=== PATIENT | female | born 1960 | race Caucasian/White ===

== ENCOUNTER → 2021-01-13 | Outpatient (CLI) | payer BC ==
[2021-01-13 12:12] LABS: Partial Thromboplastin Time 25.4 sec (22.0-30.0); Prothrombin Time 10.4 sec (9.0-12.0)
[2021-01-13 16:59] LABS: HGB 11.1 g/dL (12.0-15.0); MCH 31.4 pg (27.0-32.0); MCHC 31.7 g/dL (32.0-37.0); MCV 99.2 fL (80.0-97.0); Mean Platelet Volume 10.6 fL (9.5-12.2); Platelet Count 290 X 10*3/uL (140-440); RBC 3.53 X 10*6/uL (4.10-5.20); RDW 14.3 % (11.5-14.5); WBC 7.97 X 10*3/uL (4.50-10.00)
[2021-01-13 17:36] LABS: % Iron Saturation 17.02 (12.00-45.00); African American GFR (CKD) 62.8 (60.0-200.0); Albumin 4.5 g/dL (3.80-4.90); Albumin/Globulin Ratio 1.88 (1.60-3.17); Anion Gap 9.6 mmol/L (4.00-12.00); BUN/Creat Ratio 25.45 Ratio (12.00-20.00); Calcium 9.6 mg/dL (8.7-10.3); Carbon Dioxide 24.4 mmol/L (21.6-31.8); Chol/HDL Ratio 3.09; Globulin 2.4 g/dL (1.6-3.3); LDL Cholesterol,Calculated 50.8 mg/dL (0.0-131.0); Magnesium 1.8 mg/dL (1.5-2.4); Non-African American GFR(CKD) 54.1 (60.0-200.0); Phosphorus 3.5 mg/dL (2.4-5.1); Potassium 4.7 mmol/L (3.5-5.5); Total Bilirubin 0.4 mg/dL (0.3-1.2); Total Protein 6.9 g/dL (6.2-8.2); VLDL Calculation 20.2 mg/dL (5.00-40.00)
[2021-01-13 17:46] LABS: Ferritin 187.6 ng/mL (10.0-291.0)
[2021-01-13 17:48] LABS: Folate, Serum 16.5 ng/mL
[2021-01-13 19:38] LABS: Hemoglobin A1C 6.7 % (4.0-6.0)
[2021-01-15 12:53] LABS: Zinc, Serum 75 ug/dL (60-130)
[2021-01-16 11:46] LABS: Vitamin A 69 ug/dL (38-106)
[2021-01-16 12:02] LABS: Vit B1(Thiamine) 75 ug/L (38-122)
== END | disposition home or self-care (01) ==
LOC: LABWHC1 11:11
PROVIDERS: ATTEND Surgery Plastic and Reconstructive Surgery
DX: E89.1 Postprocedural hypoinsulinemia (principal); D50.8 Other iron deficiency anemias; K90.89 Other intestinal malabsorption; E55.9 Vitamin D deficiency, unspecified; K74.1 Hepatic sclerosis; N19 Unspecified kidney failure; K50.90 Crohn's disease, unspecified, without complications
CPT/HCPCS: 36415; 80053; 80061; 82306; 82525; 82607; 82728; 82746; 83036; 83540; 83550; 83735; 83970; 84100; 84134; 84255; 84425; 84443; 84590; 84630; 85027; 85610; 85730; 93005

== ENCOUNTER 2021-05-07 06:27 | Day surgery (SDC) | payer BC ==
[2021-05-03 11:17] VITALS: BMI 53.1
[~2021-05-07 06:27] MED LIST: LACTATED RINGERS 1,000 ML IV SCH
[2021-05-07 06:54] VITALS: TEMP 97.7
[2021-05-07 07:00] LABS: Glucose,Whole Blood 234 mg/dL (75-99)
[2021-05-07] MEDS ORDERED: INSULIN ASPART (NovoLOG) 100 UNIT/ML VIAL SQ ONE (07:02)
--- NOTE | 2021-05-07 07:09 | P.GSHP ---
History of Present Illness H&P Date: 05/07/21 CHIEF COMPLAINT: GERD HISTORY OF PRESENT ILLNESS: The patient is a 60-year-old female who presents reports gastroesophageal reflux disease. Upper endoscopy was offered for further evaluation and management. PAST MEDICAL HISTORY: Please see list. PAST SURGICAL HISTORY: Please see list. MEDICATIONS: Please see list. ALLERGIES: Please see list. SOCIAL HISTORY: No illicit drug use FAMILY HISTORY: No reports of Crohn disease or ulcerative colitis. REVIEW OF ORGAN SYSTEMS: CONSTITUTIONAL: No reports of fevers or chills. GI: Denies any blood in stools or constipation. PHYSICAL EXAM: VITAL SIGNS: Stable GENERAL: Well-developed and pleasant in no acute distress. HEENT: No scleral icterus. Extraocular movements grossly intact. Moist buccal mucosa. NECK: Supple without lymphadenopathy. CHEST: Unlabored respirations. Equal bilateral excursions. CARDIOVASCULAR: Regular rate and rhythm. Distal 2+ pulses. ABDOMEN: Soft, nondistended. MUSCULOSKELETAL: No clubbing, cyanosis, or edema. ASSESSMENT: 1. Gastroesophageal reflux disease PLAN: 1. Recommend proceeding with an upper endoscopy Past Medical History Past Medical History: Diabetes Mellitus, Hypertension, Osteoarthritis (OA), Sleep Apnea/CPAP/BIPAP, Thyroid Disorder Additional Past Medical History / Comment(s): "BORDERLINE DIABETES, SARCOIDOSIS RIGHT LUNG. , OCCASIONAL SWELLING LOWER EXTREMITIES., C-PAP MACHINE. History of Any Multi-Drug Resistant Organisms: None Reported Past Surgical History: Adenoidectomy, Heart Catheterization With Stent, Tonsillectomy Additional Past Surgical History / Comment(s): cataracts, multiple D&C's. 2000 - lung biopsy. Past Anesthesia/Blood Transfusion Reactions: No Reported Reaction Date of Last Stent Placement:: 07/2017 Past Psychological History: No Psychological Hx Reported Smoking Status: Never smoker Past Alcohol Use History: Occasional Past Drug Use History: None Reported Medications and Allergies Home Medications Medication Instructions Recorded Confirmed Type Aspirin [Adult Low Dose Aspirin EC] 81 mg PO DAILY 01/03/21 05/07/21 History Atorvastatin [Lipitor] 40 mg PO DAILY 01/03/21 05/07/21 History Levothyroxine Sodium [Synthroid] 50 mcg PO DAILY 01/03/21 05/07/21 History Losartan [Cozaar] 100 mg PO DAILY 01/03/21 05/03/21 History Mirabegron [Myrbetriq] 25 mg PO DAILY 01/03/21 05/07/21 History Spironolactone [Aldactone] 25 mg PO DAILY 01/03/21 05/07/21 History cloNIDine HCL [Catapres] 0.1 mg PO DAILY 01/03/21 05/07/21 History metFORMIN HCL [Glucophage] 500 mg PO BID 01/03/21 05/07/21 History Aspirin [Adult Low Dose Aspirin EC] 81 mg PO DAILY 05/03/21 05/07/21 History Ergocalciferol [Vitamin D2 (1250 1,250 mcg PO CLAYTON 05/03/21 05/07/21 History Mcg = 60672 Iu)] Multi Vitamin Pack 1 dose PO DAILY 05/03/21 05/07/21 History Torsemide [Demadex] 20 mg PO DAILY PRN 05/03/21 05/07/21 History amLODIPine BESYLATE 5 mg PO DAILY 05/03/21 05/07/21 History Allergies Allergy/AdvReac Type Severity Reaction Status Date / Time cephalexin [From Keflex] Allergy Itching Verified 05/07/21 06:41 codeine Allergy Nausea & Verified 05/07/21 06:41 Vomiting Surgical - Exam Vital Signs Temp Pulse Resp BP Pulse Ox 97.7 F 89 18 134/61 94 L 05/07/21 06:47 05/07/21 06:47 05/07/21 06:47 05/07/21 06:47 05/07/21 06:47 Results - Labs Abnormal Lab Results - Last 24 Hours (Table) 05/07/21 Range/Units 06:57 POC Glucose (mg/dL) 234 H (75-99) mg/dL
[2021-05-07] MEDS ORDERED: PROPOFOL 10 MG/ML 20 ML VIAL IV ONE (07:10)
[2021-05-07] MEDS ORDERED: LIDOCAINE 1% INJ 10MG/ML (20 ML MDV) ONE (07:10)
[2021-05-07] MEDS ORDERED: .fentaNYL (PF) 50 MCG/ML 2 ML AMP ONE (07:10)
[2021-05-07 07:39] VITALS: BP 115/77; PULSE 77; RESP 17
--- NOTE | 2021-05-07 07:54 | P.PCN ---
Date of Procedure: 05/07/21 Description of Procedure: PREOPERATIVE DIAGNOSIS: Gastroesophageal reflux disease. Morbid obesity. POSTOPERATIVE DIAGNOSIS: Morbid obesity. Gastritis. Gastroesophageal reflux disease. OPERATION: Esophagogastroduodenoscopy with biopsies along antrum. SURGEON: Lizet Long MD ANESTHESIA: MAC. INDICATIONS: The patient is a 60-year-old female who presents with a history of reflux disease. Benefits and risks of the procedure were described. Informed consent was obtained. DESCRIPTION: The patient was brought into the endoscopy suite and laid in the left lateral decubitus position. An Olympus gastroscope was passed along the posterior oropharynx down to the distal esophagus where the squamocolumnar junction was encountered at 40 cm from the incisors. The stomach was entered and no bile reflux was found. Additional findings are listed below. Biopsies with cold forceps were obtained of the antrum. The first through third portion of the duodenum was examined and unremarkable. Retroflexion of the scope confirmed Hill grade 2 lower esophageal valve. The squamocolumnar junction demonstrated LA grade B erosive esophagitis. The stomach was desufflated. The patient tolerated the procedure well. FINDINGS: Squamocolumnar junction 40 cm from the incisors. Diaphragmatic hiatus at 40 cm. Hill grade 2 lower esophageal valve. LA grade B erosive esophagitis. No active duodenitis. Chronic gastritis RECOMMENDATIONS: Upper endoscopy as needed. Plan - Discharge Summary New Discharge Prescriptions: New Omeprazole [PriLOSEC] 40 mg PO DAILY #14 cap Continue Atorvastatin [Lipitor] 40 mg PO DAILY Ergocalciferol [Vitamin D2 (1250 Mcg = 83447 Iu)] 1,250 mcg PO C[place]TON Aspirin [Adult Low Dose Aspirin EC] 81 mg PO DAILY Mirabegron [Myrbetriq] 25 mg PO DAILY metFORMIN HCL [Glucophage] 500 mg PO BID Losartan [Cozaar] 100 mg PO DAILY cloNIDine HCL [Catapres] 0.1 mg PO DAILY Spironolactone [Aldactone] 25 mg PO DAILY Levothyroxine Sodium [Synthroid] 50 mcg PO DAILY Aspirin [Adult Low Dose Aspirin EC] 81 mg PO DAILY amLODIPine BESYLATE 5 mg PO DAILY Torsemide [Demadex] 20 mg PO DAILY PRN PRN Reason: Edema Multi Vitamin Pack 1 dose PO DAILY Discharge Medication List Aspirin [Adult Low Dose Aspirin EC] 81 mg PO DAILY 01/03/21 [History] Atorvastatin [Lipitor] 40 mg PO DAILY 01/03/21 [History] Levothyroxine Sodium [Synthroid] 50 mcg PO DAILY 01/03/21 [History] Losartan [Cozaar] 100 mg PO DAILY 01/03/21 [History] Mirabegron [Myrbetriq] 25 mg PO DAILY 01/03/21 [History] Spironolactone [Aldactone] 25 mg PO DAILY 01/03/21 [History] cloNIDine HCL [Catapres] 0.1 mg PO DAILY 01/03/21 [History] metFORMIN HCL [Glucophage] 500 mg PO BID 01/03/21 [History] Aspirin [Adult Low Dose Aspirin EC] 81 mg PO DAILY 05/03/21 [History] Ergocalciferol [Vitamin D2 (1250 Mcg = 00399 Iu)] 1,250 mcg PO C[place]TON 05/03/21 [History] Multi Vitamin Pack 1 dose PO DAILY 05/03/21 [History] Torsemide [Demadex] 20 mg PO DAILY PRN 05/03/21 [History] amLODIPine BESYLATE 5 mg PO DAILY 05/03/21 [History] Omeprazole [PriLOSEC] 40 mg PO DAILY #14 cap 05/07/21 [Rx] [facility] up [facility]ment(s[facility]Ref[facility] [place] [facility] - [facility] Patient Instructions/Handouts: *[facility] - (Anesthesia) Endoscopy Discharge Instructions, Gastritis (DC), Diet for Stomach Ulcers and Gastritis (GEN) Discharge Disposition: HOME SELF-CARE
== END 2021-05-07 08:09 | disposition home or self-care (01) ==
LOC: ORWHC2ENDO 06:27
PROVIDERS: ATTEND Surgery Plastic and Reconstructive Surgery
DX: K21.9 Gastro-esophageal reflux disease without esophagitis (principal); K29.50 Unspecified chronic gastritis without bleeding; E66.01 Morbid (severe) obesity due to excess calories; Z68.43 Body mass index [BMI] 50.0-59.9, adult; K22.10 Ulcer of esophagus without bleeding; R73.03 Prediabetes; I10 Essential (primary) hypertension; M19.90 Unspecified osteoarthritis, unspecified site; G47.33 Obstructive sleep apnea (adult) (pediatric); E07.9 Disorder of thyroid, unspecified; D86.0 Sarcoidosis of lung; Z95.820 Peripheral vascular angioplasty status with implants and grafts; Z98.890 Other specified postprocedural states; Z98.49 Cataract extraction status, unspecified eye; Z79.84 Long term (current) use of oral hypoglycemic drugs; Z79.82 Long term (current) use of aspirin; Z79.890 Hormone replacement therapy; Z79.899 Other long term (current) drug therapy; Z88.1 Allergy status to other antibiotic agents; Z88.5 Allergy status to narcotic agent
CPT/HCPCS: 88305; 43239; J2001; J3010; J2704

== ENCOUNTER → 2021-06-04 | Outpatient (CLI) | payer BC ==
[2021-06-04 12:14] LABS: HCT 38.3 % (34.0-46.0); Hypochromasia Slight; MCH 31.2 pg (25.0-35.0); MCHC 31.2 g/dL (31.0-37.0); MCV 100.1 fL (80.0-100.0); Macrocytosis Slight; Mean Platelet Volume 7.7; Platelet Count 319 k/uL (150-450); RBC 3.83 m/uL (3.80-5.40); RDW 14.7 % (11.5-15.5); WBC 10.5 k/uL (3.8-10.6)
[2021-06-04 12:30] LABS: INR 0.9 (<1.2); Partial Thromboplastin Time 25.5 sec (22.0-30.0); Prothrombin Time 10.1 sec (9.0-12.0)
[2021-06-04 14:03] VITALS: BMI 53.8
[2021-06-05 01:53] LABS: % Iron Saturation 32.98 (12.00-45.00); ALT 12 U/L (8-44); AST 17 U/L (13-35); African American GFR (CKD) 57.7 (60.0-200.0); Albumin 4.3 g/dL (3.8-4.9); Albumin/Globulin Ratio 1.72 (1.60-3.17); Alkaline Phosphatase 82 U/L (41-126); BUN/Creat Ratio 23.47 Ratio (12.00-20.00); Blood Urea Nitrogen 27.7 mg/dL (9.0-27.0); Calcium 9.7 mg/dL (8.7-10.3); Carbon Dioxide 19.7 mmol/L (20.0-27.5); Chloride 105 mmol/L (96-109); Globulin 2.5 g/dL (1.6-3.3); Glucose 267 mg/dL (70-110); Iron 97 ug/dL (50-170); LDL Cholesterol,Calculated 73.6 mg/dL (0.0-131.0); Non-African American GFR(CKD) 49.7 (60.0-200.0); Potassium 5.1 mmol/L (3.5-5.5); Prealbumin 23.9 mg/dL (18.0-42.0); Sodium 141 mmol/L (135-145); Total Bilirubin <0.20 mg/dL (0.30-1.20); Total Iron Binding Capacity 293 ug/dL (228-460); Total Protein 6.8 g/dL (6.2-8.2)
[2021-06-05 02:15] LABS: Magnesium 1.8 mg/dL (1.5-2.4); Phosphorus 2.8 mg/dL (2.4-5.1)
[2021-06-05 13:20] LABS: Vit B1(Thiamine) 67 ug/L (38-122)
[2021-06-05 14:17] LABS: Zinc, Serum 66 ug/dL (60-130)
[2021-06-06 06:19] LABS: Vitamin A 69 ug/dL (38-106)
== END ==
LOC: BARWHC3 08:44
PROVIDERS: ATTEND Surgery Plastic and Reconstructive Surgery
DX: E66.01 Morbid (severe) obesity due to excess calories (principal); Z71.3 Dietary counseling and surveillance; Z68.43 Body mass index [BMI] 50.0-59.9, adult; Z88.1 Allergy status to other antibiotic agents; Z88.5 Allergy status to narcotic agent
CPT/HCPCS: 80053; 80061; 82306; 82525; 82607; 82728; 82746; 83036; 83540; 83550; 83735; 83970; 84100; 84134; 84255; 84425; 84443; 84590; 84630; 85027; 85610; 85730; 97804

== ENCOUNTER → 2021-06-28 | Outpatient (CLI) | payer BC | END | disposition home or self-care (01) | LOC: LABWHC1 08:43 | PROVIDERS: ATTEND Surgery Plastic and Reconstructive Surgery | DX: Z01.812 Encounter for preprocedural laboratory examination (principal); Z20.822 Contact with and (suspected) exposure to COVID-19 | CPT/HCPCS: U0003; C9803 ==

== ENCOUNTER 2021-07-02 09:07 | Inpatient (IN) | payer BC ==
--- NOTE | 2021-07-02 07:31 | P.GSHP ---
History of Present Illness H&P Date: 07/01/21 DATE OF SERVICE: 01/03/2021 CHIEF COMPLAINT: Morbid obesity HISTORY OF PRESENT ILLNESS: Elizabeth Williamson is a 60-year-old female who comes with lifelong morbid obesity. She is looking into weight loss options. She needs bilateral knee replacements. Her BMI is over 50. She is looking into the sleeve gastrectomy. She has osteoarthritis of the knees including hypertensive heart disease and sleep apnea and congestive heart related due to her morbid obesity. At height of 5 feet 8.5 inches, her ideal body weight is 163 pounds. She comes in 343 pounds from 363 pounds 5 months ago. She has lost 20 pounds in 5 months. Her body mass index is 49.5 She is 180 pounds overweight. PAST MEDICAL HISTORY: 1. Morbid obesity due to excess calories 2. Body mass index of 38.0, initial 3. Sarcoidosis 4. Diabetes mellitus type 2 5. Asthma 6. Sleep apnea 7. Hypertensive heart disease 8. Hypothyroidism 9. Congestive heart failure 10. Gallstones PAST SURGICAL HISTORY: 1. Adenoidectomy 2. Heart catheterization with stent 3. Tonsillectomy 4. Bilateral cataract surgery 5. Lung biopsy 6. Multiple D&Cs HOME MEDICATIONS: Home Medications Medication Instructions Recorded Confirmed Aspirin [Adult Low Dose Aspirin EC] 81 mg PO DAILY 01/03/21 05/03/21 Atorvastatin [Lipitor] 40 mg PO DAILY 01/03/21 05/03/21 Levothyroxine Sodium [Synthroid] 50 mcg PO DAILY 01/03/21 05/03/21 Losartan [Cozaar] 100 mg PO DAILY 01/03/21 05/03/21 Mirabegron [Myrbetriq] 25 mg PO DAILY 01/03/21 05/03/21 Spironolactone [Aldactone] 25 mg PO DAILY 01/03/21 05/03/21 cloNIDine HCL [Catapres] 0.1 mg PO DAILY 01/03/21 05/03/21 metFORMIN HCL [Glucophage] 500 mg PO BID 01/03/21 05/03/21 Aspirin [Adult Low Dose Aspirin EC] 81 mg PO DAILY 05/03/21 05/03/21 Ergocalciferol [Vitamin D2 (1250 1,250 mcg PO C[place]TON 05/03/21 05/03/21 Mcg = 00439 Iu)] Multi Vitamin Pack 1 dose PO DAILY 05/03/21 Torsemide [Demadex] 20 mg PO DAILY PRN 05/03/21 05/03/21 amLODIPine BESYLATE 5 mg PO DAILY 05/03/21 05/03/21 ALLERGIES: Allergies Allergy/AdvReac Type Severity Reaction Status Date / Time cephalexin [From Keflex] Allergy Itching Verified 05/03/21 10:44 codeine Allergy Nausea & Verified 05/03/21 10:44 Vomiting SOCIAL HISTORY: No past tobacco use. FAMILY HISTORY: No family history of ulcerative colitis disease or Crohn's disease. Family history of morbid obesity. No lupus in the family. No reports of stomach or esophageal cancer. Her brothers are overweight and rest of her family. REVIEW OF ORGAN SYSTEMS: CONSTITUTIONAL: At height of 5 feet 8.5 inches, her ideal body weight is 163 pounds. She comes in 363 pounds. Her body mass index is 54.9. She is 200 pounds overweight. HEENT: Denies any active troubles with vision or hearing. Has troubles with swallowing. ENDOCRINE: Has diabetes. Has hypothyroidism. CARDIOVASCULAR: Has hypertensive heart disease. Has hyperlipidemia. RESPIRATORY: Has asthma. Has sleep apnea. GASTROINTESTINAL: Denies any bright red blood per rectum. No diarrhea. No constipation. Has gastroesophageal reflux disease. No chronic diarrhea. Has gallstones. GENITOURINARY: Has bladder urgency. No recent blood in urine MUSCULOSKELETAL: Has lower back pain and joint pain. She has osteoarthritis of the knees. She has foot swelling. NEURO: No headaches. No seizure disorders. Has neuropathy. PSYCH: Has depression. No suicidal ideation. RHEUMATOLOGIC: No lupus. No rheumatoid arthritis. HEMATOLOGIC: She reports new easy bruising. No reports of blood clots. SKIN: No rash. No skin cancer. PHYSICAL EXAM: VITAL SIGNS: Height 5 foot 8.5 inches, weight 343 pounds. BMI 49.5 GENERAL: Well-developed in no acute distress. HEENT: No scleral icterus. Extraocular movements grossly intact. Hears conversational speech. No nasal drainage. NECK: Supple without lymphadenopathy. CHEST: Nonlabored respirations with equal bilateral excursions. CARDIOVASCULAR: Regular rate and regular rhythm. Distal 2+ pulses. ABDOMEN: Obese, soft, nontender, nondistended. MUSCULOSKELETAL: No clubbing, cyanosis. Has 2+ pedal edema. NEURO: No focal or lateralizing signs. Cranial nerves 2 through 12 grossly within normal limits. PSYCH: Appropriate affect. Alert and oriented to person, place and time. SKIN: Good skin turgor. Well perfused. ASSESSMENT: 1. Morbid obesity due to excess calories 2. Body mass index of 54.9, initial 3. Sarcoidosis 4. Diabetes mellitus type 2 5. Asthma 6. Sleep apnea 7. Hypertensive heart disease 8. Hypothyroidism 9. Congestive heart failure 10. Gallstones PLAN: 1. Bariatric options between a sleeve, band and a Sloane-en-Y gastric bypass were reviewed in detail. The patient elected for a sleeve gastrectomy. Robotic assisted approach described. 2. The [place] [facility] Data was also reviewed with benefits and risks as described. 3. An 8 page second-generation bariatric consent form was reviewed in detail including potential of bleeding, infection, leaks, adequate weight loss, nutritional deficiencies which the patient demonstrated understanding of the risks. 4. A 2 week high-protein low caloric 800 kcal diet described to address hepatomegaly. 5. Preoperative labs including complete metabolic panel and CBC with type and s creen recommended. 6. DVT prophylaxis per [place] [facility]. 7. Antibiotic prophylaxis. 8. Inpatient hospitalization anticipated for more than 2 nights. 9. All questions and concerns were addressed with the patient. 10. She is at elevated risk for perioperative complications with body mass index over 50. 11. Overall, patient has expressed understanding of bariatric care including postoperative diet and commitment of lifestyle. Patient should benefit from surgical intervention for correction of her morbid obesity. Past Medical History Past Medical History: Diabetes Mellitus, Hyperlipidemia, Hypertension, Osteoarthritis (OA), Sleep Apnea/CPAP/BIPAP, Thyroid Disorder Additional Past Medical History / Comment(s): "BORDERLINE DIABETES" per pt., SARCOIDOSIS RIGHT LUNG-has not had any sx. related to, OCCASIONAL SWELLING LOWER EXTREMITIES., uses C-PAP History of Any Multi-Drug Resistant Organisms: None Reported Past Surgical History: Adenoidectomy, Heart Catheterization With Stent, Tonsillectomy Additional Past Surgical History / Comment(s): cataracts, multiple D&C's. 1999 - lung biopsy, recent EGD Past Anesthesia/Blood Transfusion Reactions: No Reported Reaction Date of Last Stent Placement:: 07/2017 Smoking Status: Never smoker Medications and Allergies Home Medications Medication Instructions Recorded Confirmed Type Aspirin [Adult Low Dose Aspirin EC] 81 mg PO DAILY 01/03/21 06/27/21 History Atorvastatin [Lipitor] 40 mg PO DAILY 01/03/21 06/27/21 History Levothyroxine Sodium [Synthroid] 50 mcg PO DAILY 01/03/21 06/27/21 History Losartan [Cozaar] 100 mg PO DAILY 01/03/21 06/27/21 History Mirabegron [Myrbetriq] 25 mg PO DAILY 01/03/21 06/27/21 History Spironolactone [Aldactone] 25 mg PO DAILY 01/03/21 06/27/21 History cloNIDine HCL [Catapres] 0.1 mg PO DAILY 01/03/21 06/27/21 History metFORMIN HCL [Glucophage] 500 mg PO BID 01/03/21 06/27/21 History Ergocalciferol [Vitamin D2 (1250 1,250 mcg PO [place] 05/03/21 06/27/21 History Mcg = 22575 Iu)] Torsemide [Demadex] 20 mg PO DAILY PRN 05/03/21 06/27/21 History amLODIPine BESYLATE 5 mg PO DAILY 05/03/21 06/27/21 History Allergies Allergy/AdvReac Type Severity Reaction Status Date / Time cephalexin [From Keflex] Allergy Itching Verified 06/27/21 09:40 codeine Allergy Nausea & Verified 06/27/21 09:40 Vomiting
[~2021-07-02 09:07] MED LIST changes: +ACETAMINOPHEN TAB 500 MG TAB PO PRN; +CHLORHEXIDINE GLUCONATE 15 ML CUP MUCOUS MEM PRN; +DEXAMETHASONE SOD PHOSPHATE 4 MG/ML 1 ML VIAL IV ONE; +ENOXAPARIN 40 MG/0.4 ML SYRINGE SQ PRN; +GABAPENTIN 300 MG CAP PO PRN; +HYDROmorphone 0.5 MG/0.5 ML SYRINGE IVP PRN; -LACTATED RINGERS 1,000 ML IV SCH; +ONDANSETRON 4 MG/2 ML VIAL IVP ONE; +PANTOPRAZOLE 40 MG/10 ML VIAL IVP PRN; +SCOPOLAMINE 1.5MG/72HR PATCH TRANSDERM PRN; +ceFAZolin 3 GM in SODIUM CHLORIDE 0.9% 100 ML IVPB PRN
[2021-07-02 10:01] LABS: Glucose,Whole Blood 147 mg/dL (75-99)
[2021-07-02] MEDS ORDERED: ONDANSETRON 4 MG/2 ML VIAL ONE (10:02)
[2021-07-02] MEDS ORDERED: DEXAMETHASONE SOD PHOSPHATE 4 MG/ML 1 ML VIAL IV ONE (10:14)
[2021-07-02] MEDS: LACTATED RINGERS 1,000 ML IV SCH (10:15)
[2021-07-02] MEDS ORDERED: ePHEDrine 50 MG/ML 1 ML AMP ONE (10:56)
[2021-07-02] MEDS ORDERED: NEOSTIGMINE 1 MG/ML 10 ML VIAL ONE (10:56)
[2021-07-02] MEDS ORDERED: PROPOFOL 10 MG/ML 20 ML VIAL IV ONE (10:56)
[2021-07-02] MEDS ORDERED: MIDAZOLAM 2 MG/2 ML VIAL ONE (10:56)
[2021-07-02] MEDS ORDERED: SUCCINYLCHOLINE CHLORIDE VIAL 200 MG/10 ML VIAL IV ONE (10:56)
[2021-07-02] MEDS ORDERED: LIDOCAINE 1% INJ 10MG/ML (20 ML MDV) ONE (10:56)
[2021-07-02] MEDS ORDERED: PHENYLEPHRINE-0.9% NACL SYG 1,000 MCG/10 ML SYRINGE ONE (10:56)
[2021-07-02] MEDS ORDERED: WATER FOR INJECTION, STERILE 10 ML VIAL IV ONE (10:56)
[2021-07-02] MEDS ORDERED: ROCURONIUM 10 MG/ML (5 ML VIAL) IV ONE (10:56)
[2021-07-02] MEDS ORDERED: GLYCOPYRROLATE 0.2 MG/ML 2 ML VIAL ONE (10:56)
[2021-07-02] MEDS ORDERED: fentaNYL (PF) 50 MCG/ML 2 ML AMP ONE (10:56)
[2021-07-02] MEDS ORDERED: HYDROmorphone (PF) 1 MG/ML ONE (10:56)
[2021-07-02] MEDS ORDERED: BUPIVACAIN-EPI 0.25%-1:200,000 30 ML VIAL SQ ONE ×2 (10:58→11:31)
[2021-07-02] MEDS ORDERED: LACTATED RINGERS 1,000 ML IV ONE ×2 (11:45→12:55)
[2021-07-02] MEDS ORDERED: HYDROmorphone 1 MG/ML 1 ML SYRINGE IVP PRN (13:24)
[2021-07-02] MEDS ORDERED: diphenhydrAMINE 50 MG/ML 1 ML VIAL IVP PRN (13:24)
[2021-07-02] MEDS ORDERED: ONDANSETRON 4 MG/2 ML VIAL IVP PRN (13:24)
[2021-07-02] MEDS ORDERED: NALOXONE 0.4 MG/ML 1 ML VIAL IV PRN (13:24)
[2021-07-02] MEDS ORDERED: TORSEMIDE 20 MG TAB PO PRN (13:27)
--- NOTE | 2021-07-02 13:35 | P.OP ---
Date of Procedure: 07/02/21 Description of Procedure: SURGEON: JOSE DEL ROSARIO MD PREOPERATIVE DIAGNOSES: 1. Morbid obesity due to excess calories 2. Body mass index of 54.9, initial 3. Sarcoidosis 4. Diabetes mellitus type 2 5. Asthma 6. Sleep apnea 7. Hypertensive heart disease 8. Hypothyroidism 9. Congestive heart failure POSTOPERATIVE DIAGNOSES: 1. Morbid obesity due to excess calories 2. Body mass index of 54.9, initial 3. Sarcoidosis 4. Diabetes mellitus type 2 5. Asthma 6. Sleep apnea 7. Hypertensive heart disease 8. Hypothyroidism 9. Congestive heart failure 10. Hepatomegaly OPERATION: 1. Robotic assisted daVinci Xi laparoscopic sleeve gastrectomy, multiport 2. Intraoperative esophagogastroduodenoscopy. ANESTHESIA: Gen. local anesthetic ESTIMATED BLOOD LOSS: 5 mL SPECIMENS REMOVED: Sleeve gastrectomy COMPLICATIONS: None. FINDINGS: 1. Negative intraoperative esophagogastrojejunoscopy leak test. 2. No large hiatus hernia. 3. Total of 9 staplers used including 5 - 60 mm green and 4 60 mm blue robot loads used to create the gastric sleeve. 4. Sleeve gastrectomy, 39 x 6 cm INDICATIONS: Elizabeth Williamson is a 60-year-old female who comes with lifelong morbid obesity. She is looking into weight loss options. She needs bilateral knee replacements. Her BMI is over 50. She is looking into the sleeve gastrectomy. She has osteoarthritis of the knees including hypertensive heart disease and sleep apnea and congestive heart related due to her morbid obesity. At height of 5 feet 8.5 inches, her ideal body weight is 163 pounds. She comes in 342 pounds from 363 pounds 5 months ago. She has lost 20 pounds in 5 months. Her body mass index is 49.5 She is 180 pounds overweight. All surgical options for morbid obesity had been described using the [place] [facility] collaborative comorbidity resolution including complication risk score. A second-generation bariatric consent form was described in detail including the possibility of protein malnutrition, leaks, gastric stricture, venous thrombosis, gastroesophageal reflux disease, need for further surgery for which she demonstrated understanding. Benefits and risks of the procedure were described at length. Informed consent was obtained. DESCRIPTION: The patient was brought into the operating room theater. Preoperatively she had received Lovenox subcutaneously for DVT prophylaxis. Additionally she had Peridex oral solution as an oral decontaminant. After general induction, the abdomen was prepped and draped in standard sterile fashion. An Ioban draping was placed along the abdomen. A robotic da Mackenzie Xi system was prepped and primed. At 15 cm from the xiphoid, proposed port sites were marked with indelible marker along the anterior axillary line bilaterally, mid axillary line bilaterally with each ports were marked 10 to 15 cm from each other. The robotic stapler port was marked for the right midclavicular line. A 5 mm 0 degrees laparoscopic trocar entry was performed along the left upper quadrant. The abdomen was insufflated to 15 mmHg pressure was tolerated well. Diagnostic laparoscopy demonstrated no injury to bowel, viscera, or mesentery. No evidence of large hiatus hernia was identified. The liver had hepatomegaly. A 8 mm port was placed along the left upper abdominal wall after exchanging the 5 mm port. A separate 8 mm port was placed along the left lateral abdominal wall. Please note that the ports were placed at least 20 cm away from the target anatomy. Care was taken to check each robotic arms were safely away from collision with the bed or the patient. At the epigastrium, a medium sized Juan liver retractor was placed under direct visualization with the Iron Equipment Service Technician placed under the right shoulder of the patient. Next, 12-mm robot stapler port was placed along the right upper quadrant. The camera 8-mm port was maintained along the epigastrium. The patient was repositioned in reverse Trendelenburg position at 21-degrees after lowering the bed. The robot was docked along the left side of the patient. Using a grasper for arm 4, a vessel sealer for arm 3, including grasper for arm 1, the robotic system was docked and primed as described. Instruments were interchanged by the assistant quality manager for stapler loads. The camera was placed at 30- degrees down. I had sat at the console. The pylorus was identified and 6 cm proximally along the greater curvature of the stomach, the short gastrics were mobilized upwards to the angle of His using a vessel sealer. Hemostasis was excellent during this portion of the procedure. Next, the upper pole of the stomach was adherent to the left edgardo, which was gently dissected free using atraumatic grasper. I went to the head of the bed and placed 40-Khmer blunt bougie into the stomach. Robotic stapler green load 60 mm 5 followed by blue 60 mm x 4 loads were used to create the sleeve. Initial firing was across the antrum of the stomach towards the angle of His. The staple line was linear without corkscrewing. The space from the angularis incisura of the sleeve was approximately 4 cm. I then went to the head of the bed to perform the intraoperative esophagogastroduodenoscopy leak test. The upper pole of the stomach was bathed using normal saline solution. The scope was withdrawn with careful inspection along the staple line for which no leaks were found along the entire length. Additionally,the sleeve was completely hemostatic without any encroachment along the angularis incisura. Its topology was a soft "J". No stricture was encountered upon placement of the scope. The GI tract was desufflated. The patient tolerated this portion of the procedure well. The scope was completely withdrawn. The robot was undocked. I then rescrubbed into case, whereby the irrigation fluid was aspirated from the abdominal cavity. Tisseel fibrin sealant was placed along the entire staple length. Once dried the Juan liver retractor was removed. Attention was now brought to removal of the specimen. The distal end of the sleeve gastrectomy specimen was brought out through the 12 mm port at the left upper quadrant. The specimen was gently removed en total. No contamination had occurred during this process. All instruments and pneumoperitoneum including irrigation fluid was removed from the abdominal cavity. The 12 mm port site was closed using 0-Vicryl and Timbo Sky and irrigated with diluted hydrogen peroxide. The final incisions were closed using subcuticular interrupted suture of 4-0 Monocryl. Exofin was applied to the skin once the skin had been cleansed. OptiFoam dressing was placed along the stomach extraction site. The sleeve specimen was measured and checked also for leaks which none were found. At the end of the procedure, needle, sponge, and instrument count was verified correct by the surgical processor. The patient was taken to the postanesthesia care unit in stable condition. She had tolerated the procedure well. Intraoperative films and findings were reviewed with the patient's family.
[2021-07-02] MEDS: 0.9% NACL WITH KCL 20 MEQ/L 1,000 ML IV SCH ×2 (14:39→21:18)
[2021-07-02] MEDS: ALBUTEROL NEBULIZED 2.5 MG/3 ML INHALATION SCH ×2 (16:36→21:08)
[2021-07-02] MEDS: SIMETHICONE 40 MG/0.6 ML DROPS 2,000 MG/30 ML BOTTLE PO SCH ×2 (16:50→23:50)
[2021-07-02] MEDS: DEXAMETHASONE SOD PHOSPHATE 4 MG/ML 1 ML VIAL IVP SCH ×2 (16:51→23:49)
[2021-07-02] MEDS: HYOSCYAMINE ORAL DROPS 1.875 MG/15 ML BOTTLE PO SCH ×2 (16:51→23:50)
[2021-07-02] MEDS: ACETAMINOPHEN IV (For NPO) 1,000 MG in EMPTY BAG 1 BAG IVPB SCH ×2 (16:52→23:46)
[2021-07-02] MEDS: KETOROLAC 30 MG/ML 1 ML VIAL IVP SCH ×2 (16:52→23:49)
[2021-07-02] MEDS: METOCLOPRAMIDE 5 MG/ML 2 ML VIAL IVP SCH ×2 (16:53→23:48)
[2021-07-02 16:55] LABS: Glucose,Whole Blood 162 mg/dL (75-99)
[2021-07-02] MEDS: INSULIN ASPART (NovoLOG) 100 UNIT/ML VIAL SQ SCH ×2 (16:59→23:58)
[2021-07-02] MEDS: ceFAZolin 3 GM in SODIUM CHLORIDE 0.9% 100 ML IVPB SCH (17:57)
[2021-07-02] MEDS: PANTOPRAZOLE 40 MG/10 ML VIAL IV SCH (20:06)
[2021-07-02 23:58] LABS: Glucose,Whole Blood 147 mg/dL (75-99)
[2021-07-03] MEDS: LACTATED RINGERS 1,000 ML IV SCH (01:59)
[2021-07-03 02:28] VITALS: RESP 16
[2021-07-03] MEDS: ceFAZolin 3 GM in SODIUM CHLORIDE 0.9% 100 ML IVPB SCH (02:32)
[2021-07-03] MEDS: 0.9% NACL WITH KCL 20 MEQ/L 1,000 ML IV SCH (03:38)
[2021-07-03] MEDS: ACETAMINOPHEN IV (For NPO) 1,000 MG in EMPTY BAG 1 BAG IVPB SCH ×2 (05:34→12:28)
[2021-07-03] MEDS: DEXAMETHASONE SOD PHOSPHATE 4 MG/ML 1 ML VIAL IVP SCH ×2 (05:36→12:24)
[2021-07-03] MEDS: METOCLOPRAMIDE 5 MG/ML 2 ML VIAL IVP SCH ×2 (05:36→12:23)
[2021-07-03] MEDS: KETOROLAC 30 MG/ML 1 ML VIAL IVP SCH ×2 (05:37→12:23)
[2021-07-03 05:51] LABS: Glucose,Whole Blood 147 mg/dL (75-99)
[2021-07-03] MEDS: HYOSCYAMINE ORAL DROPS 1.875 MG/15 ML BOTTLE PO SCH ×2 (05:54→12:28)
[2021-07-03] MEDS: INSULIN ASPART (NovoLOG) 100 UNIT/ML VIAL SQ SCH ×2 (05:54→12:25)
[2021-07-03] MEDS: SIMETHICONE 40 MG/0.6 ML DROPS 2,000 MG/30 ML BOTTLE PO SCH ×2 (05:54→12:24)
[2021-07-03] MEDS ORDERED: LEVOTHYROXINE 50 MCG TAB PO SCH (06:30)
[2021-07-03] MEDS ORDERED: 0.9% NACL WITH KCL 20 MEQ/L 1,000 ML IV SCH (08:00)
[2021-07-03] MEDS: PANTOPRAZOLE 40 MG/10 ML VIAL IV SCH (08:16)
[2021-07-03] MEDS: ALBUTEROL NEBULIZED 2.5 MG/3 ML INHALATION SCH ×3 (08:29→16:42)
[2021-07-03 08:50] VITALS: BP 124/77
[2021-07-03] MEDS ORDERED: LOSARTAN 50 MG TAB PO SCH (09:00)
[2021-07-03] MEDS ORDERED: amLODIPine 5 MG TAB PO SCH (09:00)
[2021-07-03] MEDS ORDERED: ENOXAPARIN 40 MG/0.4 ML SYRINGE SQ SCH (09:00)
[2021-07-03] MEDS ORDERED: Mirabegron [Myrbetriq] 25 MG Tab.Er.24h PO SCH (09:00)
[2021-07-03] MEDS ORDERED: cloNIDine HCL 0.1 MG TAB PO SCH (09:00)
[2021-07-03] MEDS ORDERED: SPIRONOLACTONE 25 MG TAB PO SCH (09:00)
[2021-07-03] MEDS ORDERED: SODIUM CHLORIDE 0.9% 2,000 ML IV ONE (10:30)
--- NOTE | 2021-07-03 11:13 | FL ---
EXAMINATION TYPE: FL UGI DATE OF EXAM: 07/03/2021 LIMITED UGI: CLINICAL HISTORY: Morbid obesity, gastric sleeve surgery yesterday. TECHNIQUE: Limited esophagram is performed utilizing 2 oz of Isovue-370. A total of 39 seconds of fl uoroscopic time was utilized during procedure and 45 images obtained. COMPARISON: None. FINDINGS: The patient swallowed contrast without difficulty or delay. Esophageal peristalsis and mo tility are within normal limits. There is good flow of contrast along the diaphragmatic hiatus into proximal stomach and subsequent flow through proximal anastomosis into gastric sleeve. There is minim al delay in flow from distal sleeve and anastomosis into pylorus and duodenal sweep. Patient remains asymptomatic. There is no evidence of contrast extravasation to suggest leak. IMPRESSION: No evidence of leak or significant obstruction status post gastric sleeve surgery yesterd ay.
[2021-07-03 11:20] VITALS: TEMP 97
[2021-07-03 11:35] LABS: Glucose,Whole Blood 183 mg/dL (75-99)
[2021-07-03 11:38] LABS: Basophils # (A) 0.01 X 10*3/uL (0.00-0.10); Basophils % (A) 0.1 %; Eosinophils # (A) 0 X 10*3/uL (0.04-0.35); Eosinophils % (A) 0 %; HCT 35.7 % (37.2-46.3); HGB 11.2 g/dL (12.0-15.0); Lymphocytes % (A) 6.3 %; MCH 31.5 pg (27.0-32.0); MCHC 31.4 g/dL (32.0-37.0); MCV 100.3 fL (80.0-97.0); Mean Platelet Volume 10.7 fL (9.5-12.2); Monocytes # (A) 0.39 X 10*3/uL (0.20-1.00); Monocytes % (A) 3.5 %; Neutrophils % (A) 89.7 %; Platelet Count 310 X 10*3/uL (140-440); RBC 3.56 X 10*6/uL (4.10-5.20); RDW 14.7 % (11.5-14.5); WBC 11.15 X 10*3/uL (4.50-10.00)
[2021-07-03 11:59] LABS: African American GFR (CKD) 62.8 (60.0-200.0); Anion Gap 10.9 mmol/L (10.00-18.00); Blood Urea Nitrogen 22.6 mg/dL (9.0-27.0); Carbon Dioxide 19.1 mmol/L (20.0-27.5); Non-African American GFR(CKD) 54.1 (60.0-200.0); Phosphorus 3.7 mg/dL (2.4-5.1)
[2021-07-03 12:03] VITALS: PULSE 78
[2021-07-03 12:53] VITALS: BMI 49.2
[2021-07-03] MEDS ORDERED: SODIUM CHLORIDE 0.9% 1,000 ML IV SCH (14:00)
--- NOTE | 2021-07-03 15:59 | P.DS ---
Providers Date of admission: 07/02/21 09:07 Expected date of discharge: 07/03/21 Attending physician: Lizet Long Primary care physician: Stated None Hospital Course: Discharge diagnosis 1. Morbid obesity due to excess calories 2. Body mass index of 54.9, initial 3. Sarcoidosis 4. Diabetes mellitus type 2 5. Asthma 6. Sleep apnea 7. Hypertensive heart disease 8. Hypothyroidism 9. Congestive heart failure 10. Hepatomegaly Hospital course Elizabeth Williamson is a 60-year-old female who comes with lifelong morbid obesity. She is looking into weight loss options. She needs bilateral knee replacements. Her BMI is over 50. She has osteoarthritis of the knees including hypertensive heart disease and sleep apnea and congestive heart related due to her morbid obesity. Patient is status post Robotic assisted daVinci Xi laparoscopic sleeve gastrectomy. Patient tolerated surgery well. Her upper GI shows no evidence of leak or obstruction. She is tolerating diet. She is up and ambulating. Her pain is controlled. She is afebrile. She is stable for discharge. Physician Latrine Cleaner note has been reviewed by physician. Signing provider agrees with the documented findings, assessment, and plan of care. Patient Condition at Discharge: Stable Plan - Discharge Summary Discharge Rx Participant: Yes New Discharge Prescriptions: New bisacodyL [Dulcolax] 5 mg PO DAILY PRN #10 tab PRN Reason: Constipation Simethicone 40 mg/0.6 ml Drops [Mylicon Drops] 40 mg PO PCHS PRN #30 ml PRN Reason: Gas Omeprazole [PriLOSEC] 40 mg PO DAILY #30 cap Ondansetron Odt [Zofran Odt] 4 mg PO Q8HR PRN #9 tab PRN Reason: Nausea Acetaminophen [Tylenol Extra Strength] 1,000 mg PO Q6H PRN #12 tablet PRN Reason: Pain Continue Mirabegron [Myrbetriq] 25 mg PO DAILY Losartan [Cozaar] 100 mg PO DAILY cloNIDine HCL [Catapres] 0.1 mg PO DAILY Levothyroxine Sodium [Synthroid] 50 mcg PO DAILY amLODIPine BESYLATE 5 mg PO DAILY Discontinued Atorvastatin [Lipitor] 40 mg PO DAILY Ergocalciferol [Vitamin D2 (1250 Mcg = 35246 Iu)] 1,250 mcg PO [place] metFORMIN HCL [Glucophage] 500 mg PO BID Spironolactone [Aldactone] 25 mg PO DAILY Aspirin [Adult Low Dose Aspirin EC] 81 mg PO DAILY Torsemide [Demadex] 20 mg PO DAILY PRN PRN Reason: Edema Discharge Medication List Levothyroxine Sodium [Synthroid] 50 mcg PO DAILY 01/03/21 [History] Losartan [Cozaar] 100 mg PO DAILY 01/03/21 [History] Mirabegron [Myrbetriq] 25 mg PO DAILY 01/03/21 [History] cloNIDine HCL [Catapres] 0.1 mg PO DAILY 01/03/21 [History] amLODIPine BESYLATE 5 mg PO DAILY 05/03/21 [History] Acetaminophen [Tylenol Extra Strength] 1,000 mg PO Q6H PRN #12 tablet 07/03/21 [Rx] Omeprazole [PriLOSEC] 40 mg PO DAILY #30 cap 07/03/21 [Rx] Ondansetron Odt [Zofran Odt] 4 mg PO Q8HR PRN #9 tab 07/03/21 [Rx] Simethicone 40 mg/0.6 ml Drops [Mylicon Drops] 40 mg PO PCHS PRN #30 ml 07/03/21 [Rx] bisacodyL [Dulcolax] 5 mg PO DAILY PRN #10 tab 07/03/21 [Rx] Follow [facility](s[facility]06[place]21 9:00 am Activity/Diet/Wound Care/Special Instructions: Wear abdominal binder at all times for comfort. No lifting over 4 pounds in 4 weeks until Jul 30. May shower. No bath tub soaks for two weeks until Jul 16 Use ice along incisions for the today to prevent swelling. No straws or carbonated beverages Open cuts and/or crush all pills to the size smaller than a TicTac Hold all vitamins until seen by surgeon Discharge Disposition: HOME SELF-CARE
[2021-07-04] MEDS ORDERED: bisacodyL 5 MG TABLET.DR PO PRN (08:00)
--- NOTE | 2021-07-04 11:56 | CDI ---
Documentation Clarification Form Date: 07/04/2021 11:49:58 AM From: Reyes Salgado Admit Date: 07/02/2021 09:07:00 AM Patient Name: Elizabeth Williamson Visit Number: [id number] Discharge Date: 07/03/2021 05:33:00 PM ATTENTION: The Clinical Documentation Specialists (CDI) and [facility] Coding Staff appreciate your assistance in clarifying documentation. Please respond to the clarification below the line at the bottom and electronically sign. The CDI & [facility] Coding staff will review the response and follow-up if needed. Please note: Queries are made part of the Legal Health Record. If you have any questions, please contact the author of this message via ITS. Dr. Lizet Long Your patient has the documented diagnosis of unspecified CHF in the H+P and discharge summary. Additional information regarding the [type, acuity] of CHF is requested. History/Risk Factors: morbid obesity, hypertensive heart disease Clinical Indicators: occasional swelling of lower extremties BNP: not done Echocardiogram Results: not available Chest X Ray: not done Treatment: demadex 20 mg qd In your professional opinion, can you please clarify the [acuity and type] of CHF if known? [ ] Acute Systolic Heart Failure (reduced EF) [ ] Chronic Systolic Heart Failure (reduced EF) [ ] Acute on Chronic Systolic Heart Failure (reduced EF) [ ] Acute Diastolic Heart Failure (preserved EF) [ x] Chronic Diastolic Heart Failure (preserved EF) [ ] Acute on Chronic Diastolic Heart Failure (preserved EF) [ ] Acute Systolic & Diastolic Heart Failure [ ] Chronic Systolic & Diastolic Heart Failure [ ] Acute on Chronic Heart Failure Systolic & Diastolic Heart Failure [ ] Other, please specify [ ] Unable to determine KM 07/04/21 15:50 MTDD
== END 2021-07-03 17:33 | disposition home or self-care (01) | DRG 620 ==
LOC: 2ORMAIN 09:07 → 4SSUR 13:29
PROVIDERS: ADMIT Surgery Plastic and Reconstructive Surgery; ATTEND Surgery Plastic and Reconstructive Surgery
PROC: 8E0W4CZ Robotic Assisted Procedure of Trunk Region, Percutaneous Endoscopic Approach (ICD-10-PCS; 2021-07-02)
PROC: 0DJ08ZZ Inspection of Upper Intestinal Tract, Via Natural or Artificial Opening Endoscopic (ICD-10-PCS; 2021-07-02)
PROC: 0DB64Z3 Excision of Stomach, Percutaneous Endoscopic Approach, Vertical (ICD-10-PCS; principal; 2021-07-02 10:25)
DX: E66.01 Morbid (severe) obesity due to excess calories (principal); I50.32 Chronic diastolic (congestive) heart failure; Z68.43 Body mass index [BMI] 50.0-59.9, adult; D86.9 Sarcoidosis, unspecified; E03.9 Hypothyroidism, unspecified; E11.9 Type 2 diabetes mellitus without complications; E78.5 Hyperlipidemia, unspecified; G47.30 Sleep apnea, unspecified; I11.0 Hypertensive heart disease with heart failure; J45.909 Unspecified asthma, uncomplicated; K80.20 Calculus of gallbladder without cholecystitis without obstruction; M17.0 Bilateral primary osteoarthritis of knee; Z79.82 Long term (current) use of aspirin; Z79.84 Long term (current) use of oral hypoglycemic drugs; Z79.890 Hormone replacement therapy; Z79.899 Other long term (current) drug therapy; Z96.653 Presence of artificial knee joint, bilateral
CPT/HCPCS: 36415; 74240; 80051; 82310; 82565; 83036; 83735; 84100; 84132; 84520; 85025; 86850; 86900; 86901; 88307; 94640; 94760; 94762

== ENCOUNTER → 2021-07-06 | Outpatient (CLI) | payer BC ==
--- NOTE | 2021-07-06 09:36 | P.BASOAP ---
Subjective Progress Note Date: 07/06/21 DATE OF SERVICE: 07/06/2021 CHIEF COMPLAINT: Status post sleeve gastrectomy HISTORY OF PRESENT ILLNESS: Elizabeth Williamson is a 60-year-old female status post sleeve gastrectomy, 07/02/2021. She is POD 4. Her pain is well controlled. No nausea or vomiting. She is tolerating liquids. She wants to work remotely. Incisions are fine. At height of 5 feet 8.5 inches, her ideal body weight is 163 pounds. Her initial weight was 363 pounds. She comes in 347 pounds from 364 pounds, 2 months ago. She has lost 17 pound in 2 months. Her body mass index is 52.1. She is 184 pounds overweight. PHYSICAL EXAM: VITAL SIGNS: Height 5 foot 8.5 inches, weight 347 pounds. BMI 52.1 Vital Signs Temp 97.5 F L 07/06/21 10:28 Pulse 76 07/06/21 10:28 Resp BP 155/82 07/06/21 10:28 Pulse Ox GENERAL: Well-developed in no acute distress. HEENT: No scleral icterus. Extraocular movements grossly intact. Hears conversational speech. No nasal drainage. NECK: Supple without lymphadenopathy. CHEST: Nonlabored respirations with equal bilateral excursions. CARDIOVASCULAR: Regular rate and regular rhythm. Distal 2+ pulses. ABDOMEN: Obese, soft. Incisions intact without infection. MUSCULOSKELETAL: No clubbing, cyanosis. NEURO: No focal or lateralizing signs. Cranial nerves 2 through 12 grossly within normal limits. PSYCH: Appropriate affect. Alert and oriented to person, place and time. SKIN: Good skin turgor. Well perfused. MISCELLANEOUS: Images reviewed. ASSESSMENT: 1. Morbid obesity due to excess calories 2. Body mass index of 54.7 to 52.1 3. Sarcoidosis 4. Diabetes mellitus type 2 5. Asthma 6. Sleep apnea 7. Hypertensive heart disease 8. Hypothyroidism 9. Congestive heart failure 10. Status post sleeve gastrectomy PLAN: 1. Diet reviewed. 2. Medical reconciliation reviewed. Assessment/Plan Plan: Date: Initial Weight: 165.193 kg Initial BMI: Current Weight: Current BMI: Type of Surgery: Total Volume in Band: Previous Volume: Volume Removed: Volume Added: Band Size:
--- NOTE | 2021-07-06 09:40 | P.PN ---
Progress Note - Text Progress Note Date: 07/06/21 To whom it may concern: Elizabeth Williamson is under my surgical care. She may return to work remotely Friday July 16, 2021. Regards, Lizet Long MD, FACS
[2021-07-06 10:30] VITALS: BP 155/82; PULSE 76; TEMP 97.5; BMI 52.1
== END ==
LOC: BARWHC3 08:38
PROVIDERS: ATTEND Surgery Plastic and Reconstructive Surgery
DX: E66.01 Morbid (severe) obesity due to excess calories (principal); D86.9 Sarcoidosis, unspecified; E11.9 Type 2 diabetes mellitus without complications; J45.909 Unspecified asthma, uncomplicated; G47.30 Sleep apnea, unspecified; E03.9 Hypothyroidism, unspecified; I50.9 Heart failure, unspecified; I11.0 Hypertensive heart disease with heart failure; Z98.84 Bariatric surgery status; Z88.1 Allergy status to other antibiotic agents; Z88.5 Allergy status to narcotic agent; Z68.43 Body mass index [BMI] 50.0-59.9, adult
CPT/HCPCS: 99213

== ENCOUNTER → 2021-07-11 | Outpatient (CLI) | payer BC ==
[2021-07-11 16:04] VITALS: BP 170/80; PULSE 105; RESP 16; TEMP 98.2; BMI 50.5
--- NOTE | 2021-07-11 16:22 | P.BASOAP ---
Subjective Progress Note Date: 07/11/21 DATE OF SERVICE: 07/11/2021 CHIEF COMPLAINT: Status post sleeve gastrectomy HISTORY OF PRESENT ILLNESS: Elizabeth Williamson is a 60-year-old female status post sleeve gastrectomy, 07/02/2021. She is 1 week out. She is doing well. She denies abdominal pain, nausea or vomiting. At height of 5 feet 8.5 inches, her ideal body weight is 163 pounds. Her initial weight was 363 pounds, BMI 54.5. She comes in 336 pounds from 347 pounds, 1 week ago. She has lost 11 pound in 1 week ago. Her body mass index is 50.5. She is 173 pounds overweight. Lifetime weight loss of 27 pounds. Percent excess weight loss of 13% lifetime. PHYSICAL EXAM: VITAL SIGNS: Height 5 foot 8.5 inches, weight 336 pounds. BMI 50.5 Vital Signs Temp 98.2 F 07/11/21 16:02 Pulse 105 H 07/11/21 16:02 Resp 16 07/11/21 16:02 BP 170/80 07/11/21 16:02 Pulse Ox GENERAL: Well-developed in no acute distress. HEENT: No scleral icterus. Extraocular movements grossly intact. Hears conversational speech. No nasal drainage. NECK: Supple without lymphadenopathy. CHEST: Nonlabored respirations with equal bilateral excursions. CARDIOVASCULAR: Distal 2+ pulses. ABDOMEN: Obese, soft. Incisions intact without infection. MUSCULOSKELETAL: No clubbing, cyanosis. NEURO: No focal or lateralizing signs. Cranial nerves 2 through 12 grossly within normal limits. PSYCH: Appropriate affect. Alert and oriented to person, place and time. SKIN: Good skin turgor. Well perfused. Final Pathologic Diagnosis PORTION OF STOMACH, SLEEVE GASTRECTOMY: Mild focal chronic gastritis with congestion. Morbid obesity clinically. No Helicobacter organisms on H+E staining. ASSESSMENT: 1. Morbid obesity due to excess calories 2. Body mass index of 54.7 to 50.5 3. Sarcoidosis 4. Diabetes mellitus type 2 5. Asthma 6. Sleep apnea 7. Hypertensive heart disease 8. Hypothyroidism 9. Congestive heart failure 10. Status post sleeve gastrectomy PLAN: 1. Bariatric labs for 1 month post-op 2. Follow up 1 month Objective - Vital Signs Vital signs: Vital Signs Temp 98.2 F 07/11/21 16:02 Pulse 105 H 07/11/21 16:02 Resp 16 07/11/21 16:02 BP 170/80 07/11/21 16:02 Pulse Ox Intake & Output 07/10/21 07/11/21 07/11/21 18:59 06:59 18:59 Weight 152.861 kg Assessment/Plan Plan: Date: 07/11/21 Initial Weight: 165.193 kg Initial BMI: 54.6 Current Weight: 152.861 kg Current BMI: 50.5 Type of Surgery: Total Volume in Band: Previous Volume: Volume Removed: Volume Added: Band Size:
== END ==
LOC: BARWHC3 14:44
PROVIDERS: ATTEND Surgery Plastic and Reconstructive Surgery
DX: E66.01 Morbid (severe) obesity due to excess calories (principal); Z68.43 Body mass index [BMI] 50.0-59.9, adult; D86.9 Sarcoidosis, unspecified; E11.9 Type 2 diabetes mellitus without complications; J45.909 Unspecified asthma, uncomplicated; G47.30 Sleep apnea, unspecified; E03.9 Hypothyroidism, unspecified; I50.9 Heart failure, unspecified; I11.0 Hypertensive heart disease with heart failure; Z98.84 Bariatric surgery status; Z88.5 Allergy status to narcotic agent; Z88.1 Allergy status to other antibiotic agents
CPT/HCPCS: 97803; 99211

== ENCOUNTER → 2021-08-01 | Outpatient (CLI) | payer BC ==
[2021-08-01 15:18] VITALS: BP 119/68; PULSE 54; RESP 16; TEMP 97.4; BMI 49.8
--- NOTE | 2021-08-01 15:20 | P.BASOAP ---
Subjective Progress Note Date: 08/01/21 DATE OF SERVICE: 08/01/2021 CHIEF COMPLAINT: Status post sleeve gastrectomy HISTORY OF PRESENT ILLNESS: Elizabeth Williamson is a 60-year-old female status post sleeve gastrectomy, 07/02/2021. She reports severe constipation. She is 1 month out. She has lost 35 pounds in 2 months. No gastroesophageal reflux disease. She denies dysphagia. At height of 5 feet 8.5 inches, her ideal body weight is 163 pounds. Her initial weight was 363 pounds, BMI 54.5. She comes in 332 pounds from 336 pounds, 1 month ago. She has lost 4 pounds in 1 month. Her body mass index is 49.9. She is 169 pounds overweight. Lifetime weight loss of 31 pounds. Percent excess weight loss of 15% lifetime. PHYSICAL EXAM: VITAL SIGNS: Height 5 foot 8.5 inches, weight 332 pounds. BMI 49.9 Vital Signs Temp 97.4 F L 08/01/21 15:16 Pulse 54 L 08/01/21 15:16 Resp 16 08/01/21 15:16 BP 119/68 08/01/21 15:16 Pulse Ox GENERAL: Well-developed in no acute distress. HEENT: No scleral icterus. Extraocular movements grossly intact. Hears conversational speech. No nasal drainage. NECK: Supple without lymphadenopathy. CHEST: Nonlabored respirations with equal bilateral excursions. CARDIOVASCULAR: Distal 2+ pulses. Has irregular heart rate. ABDOMEN: Obese, soft. No hernia. MUSCULOSKELETAL: No clubbing, cyanosis. NEURO: No focal or lateralizing signs. Cranial nerves 2 through 12 grossly within normal limits. PSYCH: Appropriate affect. Alert and oriented to person, place and time. SKIN: Good skin turgor. Well perfused. ASSESSMENT: 1. Morbid obesity due to excess calories 2. Body mass index of 54.7 to 49.9 3. Sarcoidosis 4. Diabetes mellitus type 2 5. Asthma 6. Sleep apnea 7. Hypertensive heart disease 8. Hypothyroidism 9. Congestive heart failure 10. Status post sleeve gastrectomy PLAN: 1. She reports severe constipation. Recommend lactulose. 2. Recommend bariatric labs. Objective - Vital Signs Vital signs: Vital Signs Temp 97.4 F L 08/01/21 15:16 Pulse 54 L 08/01/21 15:16 Resp 16 08/01/21 15:16 BP 119/68 08/01/21 15:16 Pulse Ox Intake & Output 07/31/21 08/01/21 08/01/21 18:59 06:59 18:59 Weight 151.046 kg - Labs CBC & Chem 7: 08/01/21 16:09 08/01/21 16:09 Assessment/Plan Plan: Date: 08/01/21 Initial Weight: 165.193 kg Initial BMI: 54.6 Current Weight: 151.046 kg Current BMI: 49.8 Type of Surgery: Total Volume in Band: Previous Volume: Volume Removed: Volume Added: Band Size:
--- NOTE | 2021-08-01 15:26 | P.PN ---
Progress Note - Text Progress Note Date: 08/01/21 To whom it may concern: Elizabeth Williamson is under my surgical care. She may return to work without restrictions July,. Regards, Lizet Long MD, FACS
[2021-08-01 17:35] LABS: Partial Thromboplastin Time 26.2 sec (22.0-30.0); Prothrombin Time 10.7 sec (9.0-12.0)
[2021-08-01 23:24] LABS: HCT 36.4 % (37.2-46.3); HGB 11.7 g/dL (12.0-15.0); MCH 31.7 pg (27.0-32.0); MCHC 32.1 g/dL (32.0-37.0); MCV 98.6 fL (80.0-97.0); Mean Platelet Volume 11.5 fL (9.5-12.2); NRBC Per 100 WBC 0 /100 WBCS (0.0-0.0); Platelet Count 321 X 10*3/uL (140-440); RBC 3.69 X 10*6/uL (4.10-5.20); WBC 7.62 X 10*3/uL (4.50-10.00)
[2021-08-02 00:05] LABS: Chol/HDL Ratio 2.64 Ratio; LDL Cholesterol,Calculated 36.2 mg/dL (0.0-131.0); Prealbumin 19.8 mg/dL (18.0-42.0)
[2021-08-02 02:33] LABS: % Iron Saturation 19.58 (12.00-45.00); ALT 11 U/L (8-44); AST 14 U/L (13-35); African American GFR (CKD) 56.7 (60.0-200.0); Albumin 4.2 g/dL (3.8-4.9); Albumin/Globulin Ratio 1.87 (1.60-3.17); Alkaline Phosphatase 68 U/L (41-126); BUN/Creat Ratio 26.97 Ratio (12.00-20.00); Blood Urea Nitrogen 32.1 mg/dL (9.0-27.0); Calcium 9.7 mg/dL (8.7-10.3); Carbon Dioxide 14.1 mmol/L (20.0-27.5); Chloride 103 mmol/L (96-109); Globulin 2.2 g/dL (1.6-3.3); Glucose 127 mg/dL (70-110); Iron 51 ug/dL (50-170); Magnesium 2.1 mg/dL (1.5-2.4); Non-African American GFR(CKD) 48.9 (60.0-200.0); Phosphorus 3.8 mg/dL (2.4-5.1); Potassium 4.8 mmol/L (3.5-5.5); Sodium 138 mmol/L (135-145); Total Iron Binding Capacity 259 ug/dL (228-460); Total Protein 6.4 g/dL (6.2-8.2)
[2021-08-02 13:10] LABS: Zinc, Serum 73 ug/dL (60-130)
[2021-08-03 06:48] LABS: Vitamin A 55 ug/dL (38-106)
[2021-08-03 17:17] LABS: Selenium 133 mcg/L (63-160)
[2021-08-05 13:16] LABS: Vit B1(Thiamine) 50 ug/L (38-122)
== END ==
LOC: BARWHC3 14:56
PROVIDERS: ATTEND Surgery Plastic and Reconstructive Surgery
DX: E66.01 Morbid (severe) obesity due to excess calories (principal); E89.1 Postprocedural hypoinsulinemia; E44.0 Moderate protein-calorie malnutrition; E44.1 Mild protein-calorie malnutrition; E55.9 Vitamin D deficiency, unspecified; K74.1 Hepatic sclerosis; N19 Unspecified kidney failure; D86.9 Sarcoidosis, unspecified; E11.9 Type 2 diabetes mellitus without complications; J45.909 Unspecified asthma, uncomplicated; G47.30 Sleep apnea, unspecified; E03.9 Hypothyroidism, unspecified; I11.0 Hypertensive heart disease with heart failure; I50.9 Heart failure, unspecified; T56.894A Toxic effect of other metals, undetermined, initial encounter; Z98.84 Bariatric surgery status; Z68.42 Body mass index [BMI] 45.0-49.9, adult; Z88.1 Allergy status to other antibiotic agents; Z88.5 Allergy status to narcotic agent
CPT/HCPCS: 80053; 80061; 82306; 82525; 82607; 82728; 82746; 83036; 83540; 83550; 83735; 83970; 84100; 84134; 84255; 84425; 84443; 84590; 84630; 85027; 85610; 85730; 97803; 99211

== ENCOUNTER → 2021-11-24 | Outpatient (CLI) | payer BC ==
[2021-11-24 12:23] LABS: Partial Thromboplastin Time 28.4 sec (22.0-30.0); Prothrombin Time 11.1 sec (9.0-12.0)
[2021-11-24 16:04] LABS: Basophils # (A) 0.08 X 10*3/uL (0.00-0.10); Basophils % (A) 1.5 %; Eosinophils # (A) 0.28 X 10*3/uL (0.04-0.35); Eosinophils % (A) 5.3 %; HCT 39.7 % (37.2-46.3); HGB 11.8 g/dL (12.0-15.0); Immature Grans, Automated 0.4 %; Lymphocytes # (A) 1.27 X 10*3/uL (0.90-5.00); Lymphocytes % (A) 24.1 %; MCHC 29.7 g/dL (32.0-37.0); MCV 97.5 fL (80.0-97.0); Mean Platelet Volume 10.1 fL (9.5-12.2); Monocytes # (A) 0.38 X 10*3/uL (0.20-1.00); Monocytes % (A) 7.2 %; NRBC Per 100 WBC 0 /100 WBCS (0.0-0.0); Neutrophils # (A) 3.24 X 10*3/uL (1.80-7.70); Neutrophils % (A) 61.5 %; Platelet Count 278 X 10*3/uL (140-440); RBC 4.07 X 10*6/uL (4.10-5.20); RDW 15.2 % (11.5-14.5); WBC 5.27 X 10*3/uL (4.50-10.00)
[2021-11-24 17:36] LABS: Iron 74 ug/dL (50-170); Magnesium 2.1 mg/dL (1.5-2.4); Phosphorus 3.7 mg/dL (2.4-5.1)
[2021-11-24 18:32] LABS: % Iron Saturation 26.43 (12.00-45.00); ALT 15 U/L (8-44); AST 23 U/L (13-35); African American GFR (CKD) 51.9 (60.0-200.0); Albumin 4.1 g/dL (3.8-4.9); Albumin/Globulin Ratio 1.64 (1.60-3.17); Alkaline Phosphatase 75 U/L (41-126); BUN/Creat Ratio 17.66 Ratio (12.00-20.00); Blood Urea Nitrogen 22.6 mg/dL (9.0-27.0); Calcium 9.3 mg/dL (8.7-10.3); Chloride 107 mmol/L (96-109); Globulin 2.5 g/dL (1.6-3.3); Glucose 133 mg/dL (70-110); Non-African American GFR(CKD) 44.8 (60.0-200.0); Sodium 142 mmol/L (135-145); Total Iron Binding Capacity 280 ug/dL (228-460); Total Protein 6.7 g/dL (6.2-8.2)
[2021-11-24 21:28] LABS: Chol/HDL Ratio 2.64 Ratio; LDL Cholesterol,Calculated 47.5 mg/dL (0.0-131.0); VLDL Calculation 15.16 mg/dL (5.00-40.00)
== END | disposition home or self-care (01) ==
LOC: LABWHC1 11:30
PROVIDERS: ATTEND Surgery Plastic and Reconstructive Surgery
DX: E89.1 Postprocedural hypoinsulinemia (principal); E66.01 Morbid (severe) obesity due to excess calories; D50.8 Other iron deficiency anemias; K91.2 Postsurgical malabsorption, not elsewhere classified; E44.0 Moderate protein-calorie malnutrition; E45 Retarded development following protein-calorie malnutrition; K74.1 Hepatic sclerosis; N19 Unspecified kidney failure; T56.894A Toxic effect of other metals, undetermined, initial encounter; K50.90 Crohn's disease, unspecified, without complications
CPT/HCPCS: 36415; 80053; 80061; 82525; 82607; 82652; 82728; 82746; 83036; 83540; 83550; 83735; 83970; 84100; 84255; 84425; 84443; 84590; 84630; 85025; 85610; 85730

== ENCOUNTER → 2022-01-09 | Outpatient (CLI) | payer BC ==
[2022-01-09 16:45] VITALS: TEMP 98.2; BMI 46.5
[2022-01-09 16:49] VITALS: BP 125/91; PULSE 73
--- NOTE | 2022-01-09 17:34 | P.BASOAP ---
Subjective Progress Note Date: 01/09/22 Not enough protein. She has 7 pound weight loss. No belly pain. No food getting stuck. She is constipated. Barely 40 grams. She is pending ablation at [facility]. She has a large cyt in her right neck. Needs labs. Recommend ENT referral. Objective - Vital Signs Vital signs: Vital Signs Temp 98.2 F 01/09/22 16:37 Pulse 73 01/09/22 16:48 Resp BP 125/91 01/09/22 16:48 Pulse Ox FiO2 Intake & Output 01/08/22 01/09/22 01/09/22 18:59 06:59 18:59 Weight 141.067 kg Assessment/Plan Plan: Date: 01/09/22 Initial Weight: 165.193 kg Initial BMI: 54.6 Current Weight: 141.067 kg Current BMI: 46.5 Type of Surgery: Total Volume in Band: Previous Volume: Volume Removed: Volume Added: Band Size:
== END | disposition home or self-care (01) ==
LOC: BARWHC3 16:11
PROVIDERS: ATTEND Surgery Plastic and Reconstructive Surgery
DX: E66.01 Morbid (severe) obesity due to excess calories (principal); Z68.43 Body mass index [BMI] 50.0-59.9, adult
CPT/HCPCS: 97803; 99211

== ENCOUNTER → 2022-04-20 | Outpatient (CLI) | payer BC ==
[2022-04-20 12:32] LABS: Partial Thromboplastin Time 29.4 sec (22.0-30.0)
[2022-04-20 16:54] LABS: HCT 38.2 % (37.2-46.3); HGB 12.2 g/dL (12.0-15.0); MCH 31.8 pg (27.0-32.0); MCHC 31.9 g/dL (32.0-37.0); MCV 99.5 fL (80.0-97.0); Mean Platelet Volume 10.2 fL (9.5-12.2); NRBC Per 100 WBC 0 /100 WBCS (0.0-0.0); Platelet Count 251 X 10*3/uL (140-440); RBC 3.84 X 10*6/uL (4.10-5.20); RDW 13.7 % (11.5-14.5); WBC 6.27 X 10*3/uL (4.50-10.00)
[2022-04-20 17:15] LABS: % Iron Saturation 28.94 (12.00-45.00); ALT 11 U/L (8-44); AST 16 U/L (13-35); African American GFR (CKD) 62.3 (60.0-200.0); Albumin/Globulin Ratio 1.82 (1.60-3.17); Alkaline Phosphatase 72 U/L (41-126); BUN/Creat Ratio 25.18 Ratio (12.00-20.00); Blood Urea Nitrogen 27.7 mg/dL (9.0-27.0); Calcium 9.6 mg/dL (8.7-10.3); Carbon Dioxide 21.9 mmol/L (20.0-27.5); Chloride 109 mmol/L (96-109); Globulin 2.2 g/dL (1.6-3.3); Glucose 109 mg/dL (70-110); Iron 79 ug/dL (50-170); Magnesium 1.9 mg/dL (1.5-2.4); Non-African American GFR(CKD) 53.8 (60.0-200.0); Phosphorus 3.1 mg/dL (2.4-5.1); Potassium 4.6 mmol/L (3.5-5.5); Sodium 141 mmol/L (135-145); Total Iron Binding Capacity 274 ug/dL (228-460); Total Protein 6.2 g/dL (6.2-8.2)
[2022-04-20 17:34] LABS: Prealbumin 25.8 mg/dL (18.0-42.0); VLDL Calculation 16.06 mg/dL (5.00-40.00)
[2022-04-22 14:08] LABS: Zinc, Serum 75 ug/dL (60-130)
== END | disposition home or self-care (01) ==
LOC: LABWHC1 10:16
PROVIDERS: ATTEND Surgery Plastic and Reconstructive Surgery
DX: E89.1 Postprocedural hypoinsulinemia (principal); E66.01 Morbid (severe) obesity due to excess calories; D50.8 Other iron deficiency anemias; K91.2 Postsurgical malabsorption, not elsewhere classified; E45 Retarded development following protein-calorie malnutrition; E55.9 Vitamin D deficiency, unspecified; K74.1 Hepatic sclerosis; N19 Unspecified kidney failure; K50.90 Crohn's disease, unspecified, without complications
CPT/HCPCS: 36415; 80053; 80061; 82306; 82525; 82607; 82728; 82746; 83036; 83540; 83550; 83735; 83970; 84100; 84134; 84255; 84425; 84443; 84590; 84630; 85027; 85610; 85730

== ENCOUNTER → 2022-05-01 | Outpatient (CLI) | payer BC ==
[2022-05-01 16:45] VITALS: BP 149/92; PULSE 67; TEMP 97.9; BMI 48.5
--- NOTE | 2022-05-01 17:14 | P.BASOAP ---
Subjective Progress Note Date: 05/01/22 Plan for dieting. TSH is needed to be adjusted and increased synthroid to 75 mcg. Needs food diary journal. Objective - Vital Signs Vital signs: Vital Signs Temp 97.9 F 05/01/22 16:42 Pulse 67 05/01/22 16:42 Resp BP 149/92 05/01/22 16:42 Pulse Ox FiO2 Intake & Output 04/30/22 05/01/22 05/01/22 18:59 06:59 18:59 Weight 146.964 kg Assessment/Plan Plan: Date: 05/01/22 Initial Weight: 165.193 kg Initial BMI: 54.6 Current Weight: 146.964 kg Current BMI: 48.5 Type of Surgery: Total Volume in Band: Previous Volume: Volume Removed: Volume Added: Band Size:
== END ==
LOC: BARWHC3 16:23
PROVIDERS: ATTEND Surgery Plastic and Reconstructive Surgery
DX: Z71.3 Dietary counseling and surveillance (principal); E66.01 Morbid (severe) obesity due to excess calories; Z68.42 Body mass index [BMI] 45.0-49.9, adult; Z88.1 Allergy status to other antibiotic agents; Z88.5 Allergy status to narcotic agent
CPT/HCPCS: 97803; 99211

== ENCOUNTER → 2022-07-03 | Outpatient (CLI) | payer BC ==
[2022-07-03 17:39] VITALS: BP 146/90; PULSE 76; RESP 13; BMI 48.9
--- NOTE | 2022-07-03 18:06 | P.BASOAP ---
Subjective Progress Note Date: 07/03/22 She is 1 year out. She had an ablation. Need check of TSH. She has gained weight. She is getting 60+ gram protein to 75 grams daily. 80 grams protein 80 oz fluids. 1 year anniversary. FU 1 month Objective - Vital Signs Vital signs: Vital Signs Temp Pulse 76 07/03/22 17:37 Resp 13 07/03/22 17:37 BP 146/90 07/03/22 17:37 Pulse Ox FiO2 Intake & Output 07/02/22 07/03/22 07/03/22 18:59 06:59 18:59 Weight 147.962 kg Assessment/Plan Plan: Date: 07/03/22 Initial Weight: 165.193 kg Initial BMI: 54.6 Current Weight: 147.962 kg Current BMI: 48.9 Type of Surgery: Total Volume in Band: Previous Volume: Volume Removed: Volume Added: Band Size:
== END ==
LOC: BARWHC3 16:09
PROVIDERS: ATTEND Surgery Plastic and Reconstructive Surgery
DX: E66.01 Morbid (severe) obesity due to excess calories (principal); Z68.42 Body mass index [BMI] 45.0-49.9, adult; Z88.5 Allergy status to narcotic agent; Z88.1 Allergy status to other antibiotic agents
CPT/HCPCS: 97803; 99211

== ENCOUNTER → 2022-09-21 | Outpatient (CLI) | payer BC ==
[2022-09-21 12:45] LABS: Partial Thromboplastin Time 28.6 sec (22.0-30.0); Prothrombin Time 10.6 sec (9.0-12.0)
[2022-09-21 23:47] LABS: HCT 41.2 % (37.2-46.3); HGB 12.7 g/dL (12.0-15.0); MCH 31.5 pg (27.0-32.0); MCHC 30.8 g/dL (32.0-37.0); MCV 102.2 fL (80.0-97.0); Mean Platelet Volume 10.5 fL (9.5-12.2); NRBC Per 100 WBC 0 /100 WBCS (0.0-0.0); Platelet Count 265 X 10*3/uL (140-440); RBC 4.03 X 10*6/uL (4.10-5.20); RDW 12.8 % (11.5-14.5); WBC 6.19 X 10*3/uL (4.50-10.00)
[2022-09-22 08:22] LABS: % Iron Saturation 24.29 (12.00-45.00); ALT 12 U/L (8-44); AST 20 U/L (13-35); African American GFR (CKD) 63.3 (60.0-200.0); Albumin 4.2 g/dL (3.8-4.9); Albumin/Globulin Ratio 1.71 (1.60-3.17); Alkaline Phosphatase 87 U/L (41-126); BUN/Creat Ratio 17.69 Ratio (12.00-20.00); Blood Urea Nitrogen 19.1 mg/dL (9.0-27.0); Calcium 9.5 mg/dL (8.7-10.3); Carbon Dioxide 21.7 mmol/L (20.0-27.5); Chloride 109 mmol/L (96-109); Globulin 2.5 g/dL (1.6-3.3); Glucose 136 mg/dL (70-110); Iron 72 ug/dL (50-170); Non-African American GFR(CKD) 54.6 (60.0-200.0); Phosphorus 2.6 mg/dL (2.4-5.1); Potassium 4.7 mmol/L (3.5-5.5); Prealbumin 22.4 mg/dL (18.0-42.0); Sodium 143 mmol/L (135-145); Total Iron Binding Capacity 297 ug/dL (228-460); Total Protein 6.7 g/dL (6.2-8.2)
[2022-09-22 08:33] LABS: Chol/HDL Ratio 2.76 Ratio; LDL Cholesterol,Calculated 64.8 mg/dL (0.0-131.0)
== END | disposition home or self-care (01) ==
LOC: LABWHC1 11:14
PROVIDERS: ATTEND Surgery Plastic and Reconstructive Surgery
DX: E66.01 Morbid (severe) obesity due to excess calories (principal); E89.1 Postprocedural hypoinsulinemia; D50.8 Other iron deficiency anemias; K91.2 Postsurgical malabsorption, not elsewhere classified; E44.0 Moderate protein-calorie malnutrition; E44.1 Mild protein-calorie malnutrition; E45 Retarded development following protein-calorie malnutrition; E55.9 Vitamin D deficiency, unspecified; K74.1 Hepatic sclerosis; N19 Unspecified kidney failure; T56.894A Toxic effect of other metals, undetermined, initial encounter; K50.90 Crohn's disease, unspecified, without complications; E46 Unspecified protein-calorie malnutrition
CPT/HCPCS: 36415; 80053; 80061; 82306; 82525; 82607; 82746; 83036; 83540; 83550; 83735; 83970; 84100; 84134; 84255; 84425; 84443; 84590; 84630; 85027; 85610; 85730

== ENCOUNTER → 2023-01-23 | Outpatient (CLI) | payer BC | END | disposition home or self-care (01) | LOC: LABWHC1 15:25 | PROVIDERS: ATTEND Surgery Plastic and Reconstructive Surgery | DX: Z01.812 Encounter for preprocedural laboratory examination (principal); E66.01 Morbid (severe) obesity due to excess calories; E45 Retarded development following protein-calorie malnutrition; E44.0 Moderate protein-calorie malnutrition | CPT/HCPCS: 36415; 84443 ==

== ENCOUNTER → 2023-07-11 | Outpatient (CLI) | payer BC ==
[2023-07-11 12:26] LABS: Partial Thromboplastin Time 29.1 sec (22.0-30.0); Prothrombin Time 10.9 sec (10.0-12.5)
[2023-07-11 16:54] LABS: HCT 39.3 % (37.2-46.3); HGB 12.3 g/dL (12.0-15.0); MCH 32.3 pg (27.0-32.0); MCHC 31.3 g/dL (32.0-37.0); MCV 103.1 FL (80.0-97.0); Mean Platelet Volume 11.5 FL (9.5-12.2); NRBC Per 100 WBC 0 X 10*3/uL (0.00-0.01); Platelet Count 329 X 10*3/uL (140-440); RBC 3.81 X 10*6/uL (4.10-5.20); RDW 14.2 % (11.5-14.5); WBC 6.56 X 10*3/uL (4.50-10.00)
[2023-07-11 17:19] LABS: % Iron Saturation 22.71 (12.00-45.00); ALT 9 U/L (8-44); AST 19 U/L (13-35); Albumin/Globulin Ratio 1.43 Ratio (1.60-3.17); Alkaline Phosphatase 84 U/L (41-126); BUN/Creat Ratio 22.73 Ratio (12.00-20.00); Calcium 9.8 mg/dL (8.7-10.3); Carbon Dioxide 21.4 mmol/L (21.6-31.8); Chloride 105 mmol/L (96-109); Chol/HDL Ratio 2.94 Ratio; Globulin 2.8 g/dL (1.6-3.3); Glucose 140 mg/dL (70-110); Iron 62 UG/DL (50-170); LDL Cholesterol,Calculated 62.5 mg/dL (0.0-131.0); Potassium 5.1 mmol/L (3.5-5.5); Sodium 140 mmol/L (135-145); Total Bilirubin 0.4 mg/dL (0.3-1.2); Total Iron Binding Capacity 273 UG/DL (228-460); Total Protein 6.8 g/dL (6.2-8.2); VLDL Calculation 19.32 mg/dL (5.00-40.00)
[2023-07-11 17:22] LABS: Prealbumin 21.5 mg/dL (18.0-42.0)
== END | disposition home or self-care (01) ==
LOC: LABWHC1 10:44
PROVIDERS: ATTEND Surgery Plastic and Reconstructive Surgery
DX: E89.1 Postprocedural hypoinsulinemia (principal); E66.01 Morbid (severe) obesity due to excess calories; D50.8 Other iron deficiency anemias; K91.2 Postsurgical malabsorption, not elsewhere classified; E44.0 Moderate protein-calorie malnutrition; E44.1 Mild protein-calorie malnutrition; E45 Retarded development following protein-calorie malnutrition; E55.9 Vitamin D deficiency, unspecified; K74.1 Hepatic sclerosis; N19 Unspecified kidney failure; T56.894A Toxic effect of other metals, undetermined, initial encounter; K50.90 Crohn's disease, unspecified, without complications
CPT/HCPCS: 36415; 80053; 80061; 82306; 82525; 82607; 82728; 82746; 83036; 83540; 83550; 83735; 83970; 84100; 84134; 84255; 84425; 84443; 84590; 84630; 85027; 85610; 85730

== ENCOUNTER → 2023-09-24 | Outpatient (CLI) | payer BC ==
--- NOTE | 2023-09-24 14:54 | P.BASOAP ---
Subjective Progress Note Date: 09/24/23 She lost 7 pounds in 1 month. She did not feel hungry with water intake 100 oz. She has more energy after changing diet. Recommend change MVI. Protein daily is 90 grams. Needs TSH check in 1 month Assessment/Plan Plan: Date: Initial Weight: 165.193 kg Initial BMI: Current Weight: Current BMI: Type of Surgery: Total Volume in Band: Previous Volume: Volume Removed: Volume Added: Band Size:
[2023-09-24 16:57] VITALS: BP 119/78; PULSE 67; TEMP 98.2; BMI 48.4
== END ==
LOC: BARWHC3 13:01
PROVIDERS: ATTEND Surgery Plastic and Reconstructive Surgery
DX: E66.01 Morbid (severe) obesity due to excess calories (principal); Z98.84 Bariatric surgery status; Z90.3 Acquired absence of stomach [part of]; Z88.1 Allergy status to other antibiotic agents; Z88.5 Allergy status to narcotic agent; Z68.42 Body mass index [BMI] 45.0-49.9, adult
CPT/HCPCS: 99211